=== PATIENT | male | born 1950 | race Caucasian/White ===

== ENCOUNTER 2020-11-22 20:57 | Emergency (ER) | payer SELFPAY ==
[~2020-11-22] VITALS: Ht 170.1 cm; Wt 81.6 kg
--- NOTE | 2020-11-22 21:06 | ED Neurological Problem ---
General Stated Complaint: STROKE SYMPTOMS Source: patient, family Exam Limitations: physical impairment History of Present Illness Date Seen by Provider: Nov 22, 2020 Time Seen by Provider: 21:02 Initial Comments 70-year-old male brought in by his daughter. Patient only speaks and understands Mongolian, has a history of a stroke approximate 4 years ago which he lost the ability to communicate well. He has some mild residual weakness on the right. His daughter brought him in today because after eating supper this evening he was complaining of his head hurting, and what she thought was maybe strokelike symptoms. When he registered in with his right hand he had tremors. Upon arrival these tremors seem very consistent with chills however he is no reports of fever. No reports of cough, nausea vomiting, diarrhea. Patient himself does not complain of any pain outside a what daughter described as a similar feeling when he had a stroke in his head. However due to his physical impairments from his prior stroke and language barrier history of present illness is very difficult to obtain Allergies and Home Medications Allergies Coded Allergies: No Known Drug Allergies (Unverified , 11/22/20) Patient Home Medication List Home Medication List Reviewed: Yes Review of Systems Review of Systems Constitutional: see HPI, chills Eyes: No Symptoms Reported Ears, Nose, Mouth, Throat: no symptoms reported Respiratory: No cough, No short of breath Cardiovascular: No chest pain; palpitations Gastrointestinal: no symptoms reported; No abdominal pain, No diarrhea, No vomiting Genitourinary: no symptoms reported Musculoskeletal: no symptoms reported Skin: no symptoms reported Psychiatric/Neurological: See HPI Past Bujdgrk-Fzykxz-Wketxe Hx Past Med/Social Hx: Reviewed Nursing Past Med/Soc Hx Patient Social History Recent Foreign Travel: No Contact w/Someone Who Travel: No Physical Exam Vital Signs Vital Signs - First Documented 11/22/20 21:00 Temp 36.5 Pulse 112 Resp 18 B/P (MAP) 165/80 (108) Pulse Ox 96 O2 Delivery Room Air Capillary Refill : Height, Weight, BMI Height: '" Weight: lbs. oz. kg; BMI Method: General Appearance: other (tremors consistent with what appears to be chills) HEENT: PERRL/EOMI Neck: full range of motion, supple Respiratory: lungs clear, normal breath sounds Cardiovascular: normal peripheral pulses, tachycardia Gastrointestinal: non tender, soft Extremities: other (patient at baseline with some mild decreased weakness in the right hand) Neurologic/Psychiatric: alert, oriented x 3 Skin: normal color, warm/dry Focused Exam Lactate Level 11/22/20 21:15: Lactic Acid Level 2.72*H 11/22/20 23:29: Lactic Acid Level 2.34*H Lactic Acid Level Laboratory Tests Test 11/22/20 21:15 11/22/20 23:29 Lactic Acid Level 2.72 MMOL/L (0.50-2.00) *H 2.34 MMOL/L (0.50-2.00) *H Progress/Results/Core Measures Results/Orders Lab Results Laboratory Tests Test 11/22/20 21:15 11/22/20 22:19 11/22/20 23:29 Range/Units White Blood Count 20.8 H 4.3-11.0 10^3/uL Red Blood Count 5.02 4.35-5.85 10^6/uL Hemoglobin 14.9 13.3-17.7 G/DL Hematocrit 43 40-54 % Mean Corpuscular Volume 86 80-99 FL Mean Corpuscular Hemoglobin 30 25-34 PG Mean Corpuscular Hemoglobin Concent 35 32-36 G/DL Red Cell Distribution Width 12.4 10.0-14.5 % Platelet Count 148 130-400 10^3/uL Mean Platelet Volume 10.6 H 7.4-10.4 FL Immature Granulocyte % (Auto) 1 % Neutrophils (%) (Auto) 84 H 42-75 % Lymphocytes (%) (Auto) 12 12-44 % Monocytes (%) (Auto) 3 0-12 % Eosinophils (%) (Auto) 1 0-10 % Basophils (%) (Auto) 0 0-10 % Neutrophils # (Auto) 17.4 H 1.8-7.8 X 10^3 Lymphocytes # (Auto) 2.5 1.0-4.0 X 10^3 Monocytes # (Auto) 0.6 0.0-1.0 X 10^3 Eosinophils # (Auto) 0.1 0.0-0.3 10^3/uL Basophils # (Auto) 0.0 0.0-0.1 10^3/uL Immature Granulocyte # (Auto) 0.1 0.0-0.1 10^3/uL Neutrophils % (Manual) 87 % Lymphocytes % (Manual) 10 % Monocytes % (Manual) 3 % Toxic Granulation 4+ Sodium Level 132 L 135-145 MMOL/L Potassium Level 4.4 3.6-5.0 MMOL/L Chloride Level 96 L 98-107 MMOL/L Carbon Dioxide Level 24 21-32 MMOL/L Anion Gap 12 5-14 MMOL/L Blood Urea Nitrogen 17 7-18 MG/DL Creatinine 1.32 H 0.60-1.30 MG/DL Estimat Glomerular Filtration Rate 54 BUN/Creatinine Ratio 13 Glucose Level 259 H 70-105 MG/DL Lactic Acid Level 2.72 *H 2.34 *H 0.50-2.00 MMOL/L Calcium Level 9.5 8.5-10.1 MG/DL Corrected Calcium 8.5-10.1 MG/DL Total Bilirubin 0.7 0.1-1.0 MG/DL Aspartate Amino Transf (AST/SGOT) 19 5-34 U/L Alanine Aminotransferase (ALT/SGPT) 22 0-55 U/L Alkaline Phosphatase 51 40-136 U/L C-Reactive Protein 0.18 <0.50 MG/DL Total Protein 7.9 6.4-8.2 GM/DL Albumin 4.9 H 3.2-4.5 GM/DL Urine Color YELLOW Urine Clarity CLEAR Urine pH 6.0 5-9 Urine Specific [place] 1.020 1.016-1.022 Urine Protein NEGATIVE NEGATIVE Urine Glucose (UA) 3+ H NEGATIVE Urine Ketones NEGATIVE NEGATIVE Urine Nitrite NEGATIVE NEGATIVE Urine Bilirubin NEGATIVE NEGATIVE Urine Urobilinogen 0.2 < = 1.0 MG/DL Urine Leukocyte Esterase NEGATIVE NEGATIVE Urine RBC (Auto) NEGATIVE NEGATIVE Urine RBC NONE /HPF Urine WBC NONE /HPF Urine Squamous Epithelial Cells NONE /HPF Urine Crystals NONE /LPF Urine Bacteria NEGATIVE /HPF Urine Casts NONE /LPF Urine Mucus NEGATIVE /LPF Urine Culture Indicated NO My Orders Orders - ELLIOTT,PIOTR L DO Cbc With Automated Diff (11/22/20 21:06) Comprehensive Metabolic Panel (11/22/20 21:06) Ua Culture If Indicated (11/22/20 21:06) Blood Culture (11/22/20 21:06) Crp Fs (11/22/20 21:06) Lactic Acid Analyzer (11/22/20 21:06) Ct Head Wo-R/O Stroke (11/22/20 21:06) Chest 1 View Ap/Pa Only (11/22/20 21:06) Accucheck Stat ONCE (11/22/20 21:06) Ed Iv/Invasive Line Start (11/22/20 21:06) Acetaminophen Tablet (Tylenol Tablet) (11/22/20 21:11) Ns Iv 1000 Ml (Sodium Chloride 0.9%) (11/22/20 21:11) Procalcitonin (Pct) (11/22/20 21:14) Manual Differential (11/22/20 21:15) Cefepime Injection (Maxipime Injection) (11/22/20 21:45) Ct Abdomen/Pelvis W (11/22/20 22:34) Ekg Tracing (11/22/20 22:49) Iohexol Injection (Omnipaque 350 Mg/Ml 1 (11/22/20 23:30) Received Contrast (Hold Metformin- Contr (11/22/20 23:30) Ns (Ivpb) (Sodium Chloride 0.9% Ivpb Bag (11/22/20 23:30) Medications Given in ED Current Medications Medications Dose Ordered Sig/Yane Route Start Time Stop Time Status Last Admin Dose Admin Cefepime HCl 1000 mg/Sterile Water 10 ml @ 200 mls/hr ONCE ONCE IV 11/22/20 21:45 11/22/20 21:47 DC 11/22/20 22:12 200 MLS/HR Iohexol 100 ml ONCE ONCE IV 11/22/20 23:30 11/22/20 23:35 DC 11/22/20 23:35 100 ML Sodium Chloride 100 ml ONCE ONCE IV 11/22/20 23:30 11/22/20 23:35 DC 11/22/20 23:36 80 ML Vital Signs/I&O 11/22/20 21:00 Temp 36.5 Pulse 112 Resp 18 B/P (MAP) 165/80 (108) Pulse Ox 96 O2 Delivery Room Air Progress Progress Note : Time: 00:08 Progress Note Patient symptoms improved significantly with some Tylenol and IV fluid. Repeat lactic showed slight improvement so I will give him another 1 L bolus of lactated Ringer's. Patient has elevated white count however he has a negative head CT, negative chest x-ray negative abdominal CT, patient has no complaints o f pain, no altered mental status or headache at this time. No neck pain, no sore throat with no signs of infection upon exam or evaluation outside his leukocytosis. Patient was initially given cefepime IV empirically. After discussing with patient and family, I will start him on outpatient Keflex, he is to follow-up Wednesday for repeat of his labs and recheck of his symptoms with his primary care provider. If patient or family has any concerns they should return the ER for further evaluation. I encouraged he drinks plenty of fluids as he does look slightly dehydrated with elevated creatinine and slightly low sodium. At discharge patient was stable with no symptoms. Patient's [place] and has no symptoms consistent with COVID. Did attempt a swab him for influenza which he refused. Initial ECG Impression Date: Nov 22, 2020 Initial ECG Impression Time: 21:10 Initial ECG Rate: 115 Initial ECG Rhythm: S.Tach Initial ECG Intervals: Normal Initial ECG Impression: Normal Diagnostic Imaging Diagonstic Imaging: Xray, CT Comments [facility], [place] NAME: [facility] REC#: [id number] PT STATUS: REG ER : 1950 PHYSICIAN: PIOTR ELLIOTT DO ADMIT DATE: 11/22/20/ER FS Signed Date of Exam:11/22/20 CT HEAD WO-R/O STROKE PROCEDURE: CT head w/o r/o stroke. TECHNIQUE: Multiple contiguous axial images were obtained through the brain without the use of intravenous contrast. Auto Exposure Controls were utilized during the CT exam to meet ALARA standards for radiation dose reduction. INDICATION: Numbness. History of previous stroke. COMPARISON: No study for comparison. FINDINGS: Noncontrasted images show no evidence of intracranial hemorrhage. There is no edema or mass effect. There is a large area of encephalomalacia along the left middle cerebral distribution along the parietal occipital area. No evidence of acute ischemic infarct. Basal cisterns are clear. Pituitary is not enlarged. Mild atherosclerotic disease noted. IMPRESSION: Large area of encephalomalacia in the left middle cerebral distribution with no acute abnormality. Dictated by: Dictated on workstation # [id number] Dict: 11/22/204 Trans: 11/22/202153 [facility] [id number] Interpreted by: DEANNE HODGES MD Electronically signed by: DEANNE HODGES MD 11/22/202153 [facility] [place] NAME: [facility] REC#: [id number] PT STATUS: REG ER : 1950 PHYSICIAN: PIOTR ELLIOTT DO ADMIT DATE: 11/22/20/ER FS Signed Date of Exam:11/22/20 CHEST 1 VIEW AP/PA ONLY INDICATION: Tremors and chills. EXAMINATION: Portable chest was obtained. FINDINGS: The lungs are well-aerated and clear. Heart is not enlarged. No pneumothorax or pleural effusion. IMPRESSION: Negative portable chest. Dictated by: Dictated on workstation # [id number] Dict: 11/22/202135 Trans: 11/22/202146 [facility] [id number] Interpreted by: DEANNE HODGES MD Electronically signed by: DEANNE HODGES MD 11/22/202146 Reviewed: Reviewed by Me Diagonstic Imaging: CT Plain Films/CT/US/NM/MRI: abdomen Comments Bladder wall thickening, otherwise no acute findings. Reviewed: Reviewed [place] Hawk Study, Reviewed by Me Departure Impression Primary Impression: Neutrophilic leukocytosis Additional Impression: Chills (without fever) Disposition: 01 HOME, SELF-CARE Condition: Stable Departure-Patient Inst. Add. Discharge Instructions: Please follow-up with your primary care provider on 11/25/20 for a recheck of today symptoms and a repeat of your labs. Return to the ER with any concerns for reevaluation Drink plenty of fluids Tylenol ibuprofen as needed for fever or chills Scripts Cephalexin (Cephalexin) 500 Mg Tablet 500 MG PO QID, #20 TAB 0 Refills Prov: PIOTR ELLIOTT DO 11/23/20 PIOTR ELLIOTT DO Nov 22, 2020 21:06
[2020-11-22] MEDS ORDERED: ACETAMINOPHEN 500 MG TAB (TYLENOL) PO STA (21:11)
[2020-11-22] MEDS ORDERED: NS IV 1000 ML 1,000 ML IV STA (21:11)
[2020-11-22 21:25] LABS: BASOPHILS % (AUTO) 0 % (0-10); EOSINOPHILS # (AUTO) 0.1 10^3/uL (0.0-0.3); EOSINOPHILS % (AUTO) 1 % (0-10); HEMATOCRIT 43 % (40-54); HEMOGLOBIN 14.9 G/DL (13.3-17.7); LYMPHOCYTES # (AUTO) 2.5 X 10^3 (1.0-4.0); LYMPHOCYTES % (AUTO) 12 % (12-44); MEAN CORPUSCULAR HEMOGLOBIN 30 PG (25-34); MEAN CORPUSCULAR HGB CONC 35 G/DL (32-36); MEAN CORPUSCULAR VOLUME 86 FL (80-99); MEAN PLATELET VOLUME 10.6 FL (7.4-10.4); MONOCYTES # (AUTO) 0.6 X 10^3 (0.0-1.0); MONOCYTES % (AUTO) 3 % (0-12); NEUTROPHILS # (AUTO) 17.4 X 10^3 (1.8-7.8); NEUTROPHILS % (AUTO) 84 % (42-75); PLATELET COUNT 148 10^3/uL (130-400); WHITE BLOOD COUNT 20.8 10^3/uL (4.3-11.0)
[2020-11-22 21:37] LABS: ALANINE AMINOTRANSFERASE 22 U/L (0-55); ALKALINE PHOSPHATASE 51 U/L (40-136); BILIRUBIN,TOTAL 0.7 MG/DL (0.1-1.0); BUN/CREATININE RATIO 13; CALCIUM 9.5 MG/DL (8.5-10.1); CARBON DIOXIDE 24 MMOL/L (21-32); CHLORIDE 96 MMOL/L (98-107); CREATININE SERUM 1.32 MG/DL (0.60-1.30); GFR ESTIMATED 54; GLUCOSE 259 MG/DL (70-105); POTASSIUM 4.4 MMOL/L (3.6-5.0); SODIUM 132 MMOL/L (135-145)
[2020-11-22 21:38] LABS: ALBUMIN 4.9 GM/DL (3.2-4.5); TOTAL PROTEIN 7.9 GM/DL (6.4-8.2)
--- NOTE | 2020-11-22 21:40 | Diagnostic Imaging Report ---
INDICATION: Tremors and chills. EXAMINATION: Portable chest was obtained. FINDINGS: The lungs are well-aerated and clear. Heart is not enlarged. No pneumothorax or pleural effusion. IMPRESSION: Negative portable chest. Dictated by: Dictated on workstation # [id number]
[2020-11-22] MEDS ORDERED: CEFEPIME INJECTION 1,000 MG in WATER (STERILE) FOR INJECTION 10 ML IV ONE (21:45)
--- NOTE | 2020-11-22 21:49 | Diagnostic Imaging Report ---
PROCEDURE: CT head w/o r/o stroke. TECHNIQUE: Multiple contiguous axial images were obtained through the brain without the use of intravenous contrast. Auto Exposure Controls were utilized during the CT exam to meet ALARA standards for radiation dose reduction. INDICATION: Numbness. History of previous stroke. COMPARISON: No study for comparison. FINDINGS: Noncontrasted images show no evidence of intracranial hemorrhage. There is no edema or mass effect. There is a large area of encephalomalacia along the left middle cerebral distribution along the parietal occipital area. No evidence of acute ischemic infarct. Basal cisterns are clear. Pituitary is not enlarged. Mild atherosclerotic disease noted. IMPRESSION: Large area of encephalomalacia in the left middle cerebral distribution with no acute abnormality. Dictated by: Dictated on workstation # [id number]
[2020-11-22 21:52] LABS: LYMPHOCYTES % (MANUAL) 10 %; MONOCYTES % (MANUAL) 3 %; NEUTROPHILS % (MANUAL) 87 %
[2020-11-22 21:53] LABS: TOXIC GRANULATION/VACUOLAZATIO 4+
--- NOTE | 2020-11-22 22:24 | NUR ---
Patient refused flu swab.
[2020-11-22 22:27] LABS: BACTERIA,URINE NEGATIVE /HPF; BILIRUBIN,URINE NEGATIVE (NEGATIVE); CLARITY,URINE CLEAR; COLOR,URINE YELLOW; GLUCOSE, URINE (UA) 3+ (NEGATIVE); KETONES,URINE NEGATIVE (NEGATIVE); LEUKOCYTE ESTERASE ,URINE NEGATIVE (NEGATIVE); NITRITE,URINE NEGATIVE (NEGATIVE); PROTEIN,URINE NEGATIVE (NEGATIVE)
[2020-11-22] MEDS ORDERED: NS 100 ML (IVPB) BAG IV ONE (23:30)
[2020-11-22] MEDS ORDERED: HOLD METFORMIN - RECEIVED CONTRAST 20 ML VIAL IV SCH (23:30)
[2020-11-22] MEDS ORDERED: IOHEXOL 350 MG/ML 100 ML (OMNIPAQUE 350) VIAL IV ONE (23:30)
[2020-11-23] MEDS ORDERED: LACTATED RINGERS 1,000 ML IV STA (00:08)
[2020-11-23] MEDS ORDERED: CEPH500T PO (00:13)
[2020-11-23 00:48] VITALS: BP 158/73
--- NOTE | 2020-11-23 06:19 | Diagnostic Imaging Report ---
PROCEDURE: CT abdomen and pelvis with contrast. TECHNIQUE: Multiple contiguous axial images were obtained through the abdomen and pelvis after administration of intravenous contrast. Auto Exposure Controls were utilized during the CT exam to meet ALARA standards for radiation dose reduction. All CT scans use one or more of the following dose optimizing techniques: automated exposure control, MA and/or KvP adjustment based on patient size and exam type or iterative reconstruction. INDICATION: Elevated white blood cell count as well as lactic acid. No prior studies are available for comparison. The lung bases are clear. No discrete liver mass is detected. Gallbladder is unremarkable. There is no biliary duct dilatation. Pancreas and spleen are unremarkable. No adrenal mass is detected. Kidneys are unremarkable. Aorta and iliac vessels are heavily calcified but nonaneurysmal. Small and large bowel loops are normal in caliber. There is no obstruction. No free fluid or fluid collection is identified. Bladder demonstrates some mild wall thickening. Prostate is enlarged. There are bilateral fat-containing inguinal hernias. IMPRESSION: 1. Mild bladder wall thickening as well as prostatomegaly. Findings could be owing to bladder outlet obstruction. 2. Bilateral fat-containing inguinal hernias. 3. No other significant abnormality is detected. Dictated by: Dictated on workstation # [id number]
== END 2020-11-23 00:48 | disposition home or self-care (01) ==
LOC: ER FS 21:00
DX: D72.828 Other elevated white blood cell count (principal); R68.83 Chills (without fever)
CPT/HCPCS: 36415; 70450; 71045; 74177; 80053; 81000; 83605; 84145; 85007; 85027; 86141; 87040; 93005

== ENCOUNTER 2022-03-20 23:45 | Emergency (ER) | payer SELFPAY ==
[~2022-03-20] VITALS: Ht 172.7 cm; Wt 80.0 kg
[~2022-03-20 23:45] MED LIST: CEPH500T PO
[2022-03-21 00:09] LABS: BASOPHILS % (AUTO) 0 % (0-10); EOSINOPHILS # (AUTO) 0.2 10^3/uL (0.0-0.3); EOSINOPHILS % (AUTO) 2 % (0-10); HEMATOCRIT 39 % (40-54); HEMOGLOBIN 14.3 g/dL (13.3-17.7); LYMPHOCYTES # (AUTO) 4.4 10^3/uL (1.0-4.0); LYMPHOCYTES % (AUTO) 39 % (12-44); MEAN CORPUSCULAR HEMOGLOBIN 30 pg (25-34); MEAN CORPUSCULAR HGB CONC 37 g/dL (32-36); MEAN CORPUSCULAR VOLUME 81 fL (80-99); MEAN PLATELET VOLUME 10.2 fL (9.0-12.2); MONOCYTES # (AUTO) 0.7 10^3/uL (0.0-1.0); MONOCYTES % (AUTO) 7 % (0-12); NEUTROPHILS # (AUTO) 5.8 10^3/uL (1.8-7.8); NEUTROPHILS % (AUTO) 51 % (42-75); PLATELET COUNT 155 10^3/uL (130-400); WHITE BLOOD COUNT 11.2 10^3/uL (4.3-11.0)
[2022-03-21 00:30] LABS: ALANINE AMINOTRANSFERASE 22 U/L (0-55); ALBUMIN 4.6 GM/DL (3.2-4.5); ALKALINE PHOSPHATASE 56 U/L (40-136); BILIRUBIN,TOTAL 0.6 MG/DL (0.1-1.0); BUN/CREATININE RATIO 15; CARBON DIOXIDE 21 MMOL/L (21-32); CHLORIDE 100 MMOL/L (98-107); CREATININE SERUM 1.54 MG/DL (0.60-1.30); GFR ESTIMATED 48; GLUCOSE 196 MG/DL (70-105); POTASSIUM 4.4 MMOL/L (3.6-5.0); SODIUM 134 MMOL/L (135-145)
--- NOTE | 2022-03-21 01:14 | ED Respiratory ---
General Chief Complaint: Respiratory Problems Stated Complaint: SOB Nursing Triage Note: Pt arrival to ER via wheelchair with complaint of SOA since yesterday morning. Family states that patient is non verbal after stroke. Family states that patient has had a cough here and there but nothing consistant. Pt denies chest pain. Pt does shake head when asking if there is pain when taking deep breath. Pt has no hx of copd, or smoking. Family states that patient took some dayquil today and felt much better. States that patient denied wanting to go to PCP today. States that tonight when patient went to lay down for bed, SOA worsened and patient wanted to go to checked out. PT has hx of HTN per family. Source: patient, family Exam Limitations: other (Aphasia from prior stroke) History of Present Illness Date Seen by Provider: Mar 20, 2022 Time Seen by Provider: 23:58 Initial Comments This 71-year-old gentleman presents to the emergency room accompanied by his family with expressions of shortness of breath. Patient has notable expressive aphasia from a prior stroke, but he was able to communicate to his family that he felt short of breath. He denies any new cough, fever, chest pain, nausea, etc. He is notably hypertensive on arrival. That hypertension improved rapidly without treatment. Family states he does get very anxious at times since the stroke. Anytime he has a medical issue that causes him distress, he gets quite anxious. Allergies and Home Medications Allergies Coded Allergies: No Known Drug Allergies (Unverified , 11/22/20) Patient Home Medication List Home Medication List Reviewed: Yes Azithromycin (Azithromycin) 250 Mg Tablet, 250 MG PO UD Prescribed by: ANTONINO CORTEZ on 03/23/22 1119 Cephalexin (Cephalexin) 500 Mg Tablet, 500 MG PO QID Prescribed by: PIOTR ELLIOTT on 11/23/20 0013 Review of Systems Review of Systems Constitutional: no symptoms reported EENTM: no symptoms reported Respiratory: see HPI Cardiovascular: no symptoms reported Gastrointestinal: no symptoms reported Musculoskeletal: other (Contractures of the right upper extremity) Skin: no symptoms reported Psychiatric/Neurological: See HPI Hematologic/Lymphatic: No Symptoms Reported Immunological/Allergic: no symptoms reported Past Cqgzyxh-Gteday-Qdvyne Hx Patient Social History Tobacco Use?: No Use of E-Cig and/or Vaping dev: No Substance use?: No Alcohol Use?: No Pt feels they are or have been: No Immunizations Up To Date Second COVID19 Vaccination David: 10/12 COVID19 Vaccine Electric Cell Tender: Jasen Past Medical History Surgeries: No Respiratory: No Cardiac: Yes Hypertension Neurological: Yes (Right Sided Residual, aphasia, spasticity of right upper extremity) Stroke Genitourinary: No Gastrointestinal: No Musculoskeletal: No Endocrine: Yes Diabetes, Non-Insulin dep HEENT: No Cancer: No Psychosocial: No Integumentary: No Physical Exam Vital Signs - First Documented Capillary Refill : Less Than 3 Seconds Height: '" Weight: lbs. oz. 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, no motor/sensory deficits, alert, normal mood/affect, oriented x 3 Skin: normal color, warm/dry Progress/Results/Core Measures Suspected Sepsis SIRS Temperature: Pulse: 97 Respiratory Rate: 20 Laboratory Tests 03/21/22 00:02: White Blood Count 11.2H Blood Pressure 215 /95 Mean: 135 Laboratory Tests 03/21/22 00:02: Creatinine 1.54H, Platelet Count 155, Total Bilirubin 0.6 Results/Orders Lab Results Laboratory Tests Test 03/21/22 00:02 Range/Units White Blood Count 11.2 H 4.3-11.0 10^3/uL Red Blood Count 4.85 4.30-5.52 10^6/uL Hemoglobin 14.3 13.3-17.7 g/dL Hematocrit 39 L 40-54 % Mean Corpuscular Volume 81 80-99 fL Mean Corpuscular Hemoglobin 30 25-34 pg Mean Corpuscular Hemoglobin Concent 37 H 32-36 g/dL Red Cell Distribution Width 12.9 10.0-14.5 % Platelet Count 155 130-400 10^3/uL Mean Platelet Volume 10.2 9.0-12.2 fL Immature Granulocyte % (Auto) 1 % Neutrophils (%) (Auto) 51 42-75 % Lymphocytes (%) (Auto) 39 12-44 % Monocytes (%) (Auto) 7 0-12 % Eosinophils (%) (Auto) 2 0-10 % Basophils (%) (Auto) 0 0-10 % Neutrophils # (Auto) 5.8 1.8-7.8 10^3/uL Lymphocytes # (Auto) 4.4 H 1.0-4.0 10^3/uL Monocytes # (Auto) 0.7 0.0-1.0 10^3/uL Eosinophils # (Auto) 0.2 0.0-0.3 10^3/uL Basophils # (Auto) 0.0 0.0-0.1 10^3/uL Immature Granulocyte # (Auto) 0.1 0.0-0.1 10^3/uL Sodium Level 134 L 135-145 MMOL/L Potassium Level 4.4 3.6-5.0 MMOL/L Chloride Level 100 98-107 MMOL/L Carbon Dioxide Level 21 21-32 MMOL/L Anion Gap 13 5-14 MMOL/L Blood Urea Nitrogen 23 H 7-18 MG/DL Creatinine 1.54 H 0.60-1.30 MG/DL Estimat Glomerular Filtration Rate 48 BUN/Creatinine Ratio 15 Glucose Level 196 H 70-105 MG/DL Calcium Level 10.0 8.5-10.1 MG/DL Corrected Calcium 8.5-10.1 MG/DL Total Bilirubin 0.6 0.1-1.0 MG/DL Aspartate Amino Transf (AST/SGOT) 16 5-34 U/L Alanine Aminotransferase (ALT/SGPT) 22 0-55 U/L Alkaline Phosphatase 56 40-136 U/L Troponin I < 0.30 <0.30 NG/ML C-Reactive Protein < 0.30 <0.50 MG/DL Pro-B-Type Natriuretic Peptide 79.8 H <75.0 PG/ML Total Protein 8.0 6.4-8.2 GM/DL Albumin 4.6 H 3.2-4.5 GM/DL Influenza Type A (RT-PCR) Not Detected Not Detecte Influenza Type A Antigen NEGATIVE NEGATIVE Influenza Type B Antigen NEGATIVE NEGATIVE Influenza Type B (RT-PCR) Not Detected Not Detecte SARS-CoV-2 RNA (RT-PCR) Not Detected Not Detecte My Orders Orders - ALEKSANDER TADEO MD Ed Iv/Invasive Line Start (03/20/22 23:58) Ekg Tracing (03/20/22 23:58) Monitor-Rhythm Ecg Trace Only (03/20/22 23:58) Cbc With Automated Diff (03/20/22 23:58) Comprehensive Metabolic Panel (03/20/22 23:58) Probnp Fs (03/20/22 23:58) Troponin I Fs (03/20/22 23:58) Covid 19 Inhouse Test (03/20/22 23:58) Influenza A And B By Pcr (03/20/22 23:58) Chest Pa/Lat (2 View) (03/21/22 00:03) Crp Fs (03/21/22 00:02) Influenza A & B Antigens (03/21/22 00:42) Vital Signs/I&O 03/21/22 03/21/22 03/21/22 00:05 00:05 01:18 Temp 36.7 Pulse 97 86 Resp 20 20 B/P (MAP) 215/95 (135) 148/77 Pulse Ox 98 96 O2 Delivery Room Air Room Air Room Air Capillary Refill : Less Than 3 Seconds Blood Pressure Mean: 135 Progress Note : Progress Note Patient was seen and examined. Work-up revealed no significant abnormalities. Patient was feeling better without any interventions. Blood pressure improved as he relaxed. Family was later called with the COVID-19 negative result. ECG Initial ECG Impression Date: Mar 21, 2022 Initial ECG Impression Time: 00:10 Initial ECG Rate: 99 Initial ECG Rhythm: S.Tach Comment Mild sinus tachycardia with no diagnostic ST elevation or depression. No abnormal intervals or axis deviation. Diagnostic Imaging Diagonstic Imaging: Xray Plain Films/CT/US/NM/MRI: chest Comments 2 view chest x-ray viewed by me and report not yet available. No acute abnormalities were appreciated in comparison with prior. Departure Impression Primary Impression: Dyspnea Qualified Codes: R06.00 - Dyspnea, unspecified Additional Impression: Episode of hypertension Disposition: HOME, SELF-CARE Condition: Improved Departure-Patient Inst. Decision time for Depature: 01:12 Referrals: ANNA SHRESTHA MD (PCP/Family) Primary Care Physician Patient Instructions: Shortness of Breath, Adult ED Add. Discharge Instructions: Follow-up with your primary care provider soon as possible. Discuss possibly having a medication available to take for anxiety attacks as the sensation of shortness of breath may be due to anxiety. Continue your medications as previously prescribed. Return to the ER if you have worsening symptoms. Your COVID-19 test is still pending and we could call you with the result. All discharge instructions reviewed with patient and/or family. Voiced understanding. Copy Copies To 1: ANNA SHRESTHA MD, JOSHUA T MD Mar 21, 2022 01:14
[2022-03-21 01:18] VITALS: BP 148/77
--- NOTE | 2022-03-21 07:20 | Diagnostic Imaging Report ---
INDICATION: Shortness of air COMPARISON: 11/22/2020 TECHNIQUE: 3 radiographs of the chest dated 03/21/2022 FINDINGS: Surgical clips are identified overlying the left neck. The cardiac silhouette is within normal limits in size. No significant pulmonary vascular congestion. Mildly decreased lung volumes without focal pulmonary opacity. No pleural effusion. No pneumothorax. Scattered osseous degenerative changes without acute osseous abnormality. IMPRESSION: Decreased lung volumes without superimposed acute cardiopulmonary abnormality. Dictated by: Dictated on workstation # [id number]
== END 2022-03-21 01:18 | disposition home or self-care (01) ==
LOC: EDUNIT# 23:45 → ER FS 23:47
DX: R06.00 Dyspnea, unspecified (principal); I10 Essential (primary) hypertension; Z20.822 Contact with and (suspected) exposure to COVID-19
CPT/HCPCS: 36415; 71046; 80053; 83880; 84484; 85025; 86141; 87636; 87804; 93005; 93041

== ENCOUNTER 2022-03-23 05:58 | Emergency (ER) | payer SELFPAY ==
[~2022-03-23] VITALS: Ht 172.7 cm; Wt 78.9 kg
[2022-03-23 06:28] LABS: ABG BASE EXCESS -2.5 MMOL/L (-2.5-2.5); ABG OXYGEN SATURATION 95 % (94-100); ABG PCO2 39 MMHG (35-45); ABG PH 7.37 (7.37-7.43); ABG PO2 77 MMHG (79-93); ABG TCO2 23.1 MMOL/L (21.0-31.0)
[2022-03-23 06:30] LABS: ALLENS TEST YES-POS; INSPIRED O2 ROOM AIR; PATIENT TEMP 37; VENTILATOR NO
--- NOTE | 2022-03-23 06:33 | ED Respiratory ---
General Chief Complaint: Respiratory Problems Stated Complaint: SOB Nursing Triage Note: Pt alert to ER with complaint of SOA. Pt is alert and in no obvious distress. Pt RR is 20 and o2 sat is 97%. Pt was seen at [place] [facility] two days ago for same thing with complete work up being unremarkable. Family of patient states that they came here this AM from [place] because the ER in [place] didn't do anything. Pt denies chest pain or other symptoms. Source: patient, family Exam Limitations: language barrier (Family interprets) History of Present Illness Date Seen by Provider: March 23, 2022 Time Seen by Provider: 06:04 Initial Comments Patient to the ER by private conveyance from home with chief complaint that for the past couple days has been complaining of being very short of breath especially after he lays down to sleep at night. States during the day when he lays down for a nap he does not become short of breath in his chair. 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 He is not having any chest pain nausea swelling in his hands or feet or weight gain. He does not take any antihistamines but does endorse some nasal congestion and an occasional dry cough. No fevers or chills. He was seen 2 days ago at the [place] [facility] and had a work-up including negative COVID and influenza, negative chest x-ray and negative labs. He was noted at that time to have elevated blood pressure and appeared very anxious but after a short while he relaxed and his blood pressure came back down to normal. He has not had his blood pressure medicines this morning. Nursing reports his blood pressure initially was 198/100. Primary care by Dr. MALLORY. Allergies and Home Medications Allergies Coded Allergies: No Known Drug Allergies (Unverified , 11/22/20) Patient Home Medication List Home Medication List Reviewed: Yes Cephalexin (Cephalexin) 500 Mg Tablet, 500 MG PO QID Prescribed by: PIOTR ELLIOTT on 11/23/20 0013 Review of Systems Review of Systems Constitutional: No chills, No fever, No malaise EENTM: No ear discharge, No ear pain, No eye pain Respiratory: cough; No dyspnea on exertion, No hemoptysis, No phlegm; short of breath; No wheezing Cardiovascular: No chest pain, No edema, No palpitations Gastrointestinal: No abdominal pain, No nausea, No vomiting Genitourinary: No discharge, No dysuria Musculoskeletal: No back pain, No joint pain All Other Systems Reviewed Negative Unless Noted: Yes Past Cqgjjji-Fumoin-Hopmbj Hx Patient Social History Tobacco Use?: No Use of E-Cig and/or Vaping dev: No Substance use?: No Alcohol Use?: No Pt feels they are or have been: No Immunizations Up To Date Influenza Vaccine Up-to-Date: Yes; Up-to-Date First/Initial COVID19 Vaccinat: 10/12 Second COVID19 Vaccination David: 10/12 Third COVID19 Vaccination Date: 10/12 Past Medical History Surgeries: No Respiratory: No Cardiac: Yes Hypertension Neurological: Yes (Right Sided Residual, aphasia, spasticity of right upper extremity) Stroke Genitourinary: No Gastrointestinal: No Musculoskeletal: No Endocrine: Yes Diabetes, Non-Insulin dep HEENT: No Cancer: No Psychosocial: No Integumentary: No Physical Exam Vital Signs - First Documented 03/23/22 06:14 Temp 37.0 Pulse 96 Resp 20 B/P (MAP) 196/108 (137) Pulse Ox 97 O2 Delivery Room Air Capillary Refill : Less Than 3 Seconds Height: '" Weight: lbs. oz. kg; 26.00 BMI Method: General Appearance: WD/WN, no apparent distress Eyes: Bilateral Eye Normal Inspection, Bilateral Eye PERRL, Bilateral Eye EOMI HEENT: PERRL/EOMI, normal ENT inspection; No TMs normal (Bilateral TMs with mu coid effusion but no injection, loss of landmarks or erythema); pharynx normal Neck: full range of motion, supple, normal inspection Respiratory: lungs clear, normal breath sounds, no respiratory distress, no acc essory muscle use Cardiovascular: normal peripheral pulses, regular rate, rhythm Gastrointestinal: normal bowel sounds, non tender, soft Extremities: normal inspection, no pedal edema, normal capillary refill Neurologic/Psychiatric: alert, normal mood/affect, oriented x 3 Skin: normal color, warm/dry Progress/Results/Core Measures Suspected Sepsis SIRS Temperature: Pulse: 96 Respiratory Rate: 20 Laboratory Tests 03/23/22 06:10: White Blood Count 11.9H Blood Pressure 196 /108 Mean: 137 Laboratory Tests 03/23/22 06:10: Creatinine 1.33H, Platelet Count 178, Total Bilirubin 0.9 Results/Orders Lab Results Laboratory Tests Test 03/23/22 06:10 03/23/22 06:22 Range/Units White Blood Count 11.9 H 4.3-11.0 10^3/uL Red Blood Count 4.86 4.30-5.52 10^6/uL Hemoglobin 14.3 13.3-17.7 g/dL Hematocrit 40 40-54 % Mean Corpuscular Volume 82 80-99 fL Mean Corpuscular Hemoglobin 29 25-34 pg Mean Corpuscular Hemoglobin Concent 36 32-36 g/dL Red Cell Distribution Width 12.6 10.0-14.5 % Platelet Count 178 130-400 10^3/uL Mean Platelet Volume 10.8 9.0-12.2 fL Immature Granulocyte % (Auto) 1 % Neutrophils (%) (Auto) 66 42-75 % Lymphocytes (%) (Auto) 26 12-44 % Monocytes (%) (Auto) 7 0-12 % Eosinophils (%) (Auto) 1 0-10 % Basophils (%) (Auto) 0 0-10 % Neutrophils # (Auto) 7.8 1.8-7.8 10^3/uL Lymphocytes # (Auto) 3.1 1.0-4.0 10^3/uL Monocytes # (Auto) 0.8 0.0-1.0 10^3/uL Eosinophils # (Auto) 0.1 0.0-0.3 10^3/uL Basophils # (Auto) 0.0 0.0-0.1 10^3/uL Immature Granulocyte # (Auto) 0.1 0.0-0.1 10^3/uL Sodium Level 134 L 135-145 MMOL/L Potassium Level 4.2 3.6-5.0 MMOL/L Chloride Level 101 98-107 MMOL/L Carbon Dioxide Level 20 L 21-32 MMOL/L Anion Gap 13 5-14 MMOL/L Blood Urea Nitrogen 17 7-18 MG/DL Creatinine 1.33 H 0.60-1.30 MG/DL Estimat Glomerular Filtration Rate 58 BUN/Creatinine Ratio 13 Glucose Level 167 H 70-105 MG/DL Calcium Level 9.5 8.5-10.1 MG/DL Corrected Calcium 8.5-10.1 MG/DL Total Bilirubin 0.9 0.1-1.0 MG/DL Aspartate Amino Transf (AST/SGOT) 17 5-34 U/L Alanine Aminotransferase (ALT/SGPT) 25 0-55 U/L Alkaline Phosphatase 53 40-136 U/L Troponin I < 0.028 <0.028 NG/ML C-Reactive Protein High Sensitivity 0.15 0.00-0.50 MG/DL B-Type Natriuretic Peptide 18.2 <100.0 PG/ML Total Protein 7.8 6.4-8.2 GM/DL Albumin 4.7 H 3.2-4.5 GM/DL Blood Gas Puncture Site RIGHT RADIAL Blood Gas Patient Temperature 37 Arterial Blood pH 7.37 7.37-7.43 Arterial Blood Partial Pressure CO2 39 35-45 MMHG Arterial Blood Partial Pressure O2 77 L 79-93 MMHG Arterial Blood HCO3 22 L 23-27 MMOL/L Arterial Blood Total CO2 23.1 21.0-31.0 MMOL/L Arterial Blood Oxygen Saturation 95 94-100 % Arterial Blood Base Excess -2.5 -2.5-2.5 MMOL/L Cody Test YES-POS Blood Gas Ventilator Setting NO Blood Gas Inspired Oxygen ROOM AIR My Orders Orders - ANTONINO CORTEZ Arterial Blood Gas (03/23/22 06:23) Chest Pa/Lat (2 View) (03/23/22 06:24) Cbc With Automated Diff (03/23/22 06:24) Comprehensive Metabolic Panel (03/23/22 06:24) Hs C Reactive Protein (03/23/22 06:24) Continuous Ekg Monitoring (03/23/22 06:24) Ekg Tracing (03/23/22 06:24) Troponin I [place] (03/23/22 06:24) Bnp [place] (03/23/22 06:24) Covid-19 External Lab Results (03/23/22 06:24) Ct Angio Chest W (03/23/22 08:01) Ed Iv/Invasive Line Start (03/23/22 08:01) Ns Iv 1000 Ml (Sodium Chloride 0.9%) (03/23/22 08:15) Iohexol Injection (Omnipaque 350 Mg/Ml 1 (03/23/22 08:30) Received Contrast (Hold Metformin- Contr (03/23/22 08:30) Sodium Chloride Flush (Catheter Flush Sy (03/23/22 08:30) Ns (Ivpb) (Sodium Chloride 0.9% Ivpb Bag (03/23/22 08:30) Medications Given in ED Current Medications Medications Dose Ordered Sig/Yane Route Start Time Stop Time Status Last Admin Dose Admin Iohexol 100 ml ONCE ONCE IV 03/23/22 08:30 03/23/22 08:31 DC 03/23/22 08:41 70 ML Sodium Chloride 10 ml NEEDED PRN IV 03/23/22 08:30 03/23/22 08:41 10 ML Sodium Chloride 100 ml ONCE ONCE IV 03/23/22 08:30 03/23/22 08:31 DC 03/23/22 08:41 80 ML Vital Signs/I&O 03/23/22 03/23/22 06:14 06:14 Temp 37.0 Pulse 96 Resp 20 B/P (MAP) 196/108 (137) Pulse Ox 97 O2 Delivery Room Air Room Air Capillary Refill : Less Than 3 Seconds Blood Pressure Mean: 137 Progress Note #1: Time: 06:36 Progress Note Patient had a clean work-up couple days ago and his blood pressure went down without intervention. He was chalked up to perhaps anxiety. Today he does endorse some congestion in his nose and certainly allergies could be making it hard for him to sleep at night causing his sensation of dyspnea. Were going to broaden our look with troponin, EKG, BNP and an ABG and repeat a chest x-ray with basic labs. 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 Progress Note #2: Time: 10:58 Progress Note Patient is resting comfortably, got up to use the bathroom several times. He does not have any evidence of acute disease however he has some emphysematous changes on imaging. We will put him on a nasal steroid, Zyrtec once a day and some azithromycin with follow-up with Dr. MALLORY. ECG Initial ECG Impression Date: March 23, 2022 Initial ECG Impression Time: 06:33 Initial ECG Rate: 84 Initial ECG Rhythm: Normal Sinus Initial ECG Intervals: Normal Initial ECG Impression: Normal Initial ECG Comparisson: Unchanged Comment Normal sinus rhythm with a PVC but no clinically relevant ST changes Diagnostic Imaging Diagonstic Imaging: Xray Plain Films/CT/US/NM/MRI: chest Comments [facility] [place], [place] NAME: TUCKER BOWLES [employer] REC#: [id number] PT STATUS: REG ER : 1950 PHYSICIAN: ANTONINO CORTEZ MD ADMIT DATE: 03/23/22/ER Draft Date of Exam:03/23/22 CHEST PA/LAT (2 VIEW) CLINICAL INDICATIONS: Patient with shortness of air. EXAM: Chest x-ray PA and lateral views. COMPARISON: Chest x-ray dated 03/21/2022. FINDINGS: Lungs/pleura: Increased lung markings throughout both lungs again seen with no interval lung infiltrate. There is no pneumothorax. There is no pleural effusion. Mediastinum: Unremarkable. Pulmonary vasculature: Unremarkable. Heart: Unremarkable. Bones/extrathoracic soft tissue: There are hypertrophic spurs involving the thoracic spine. IMPRESSION: There is no radiographic evidence of acute cardiopulmonary process. Dictated on workstation # [id number] Dict: 03/23/2230 Trans: 03/23/22 0735 CV [id number] Interpreted by: MARIA TERESA GARCIA MD Electronically signed by: Reviewed: Reviewed by Me Diagonstic Imaging: CT Plain Films/CT/US/NM/MRI: chest Comments [facility] [place] [place] NAME: TUCKER BOWLES [employer] REC#: [id number] PT STATUS: REG ER : 1950 PHYSICIAN: ANTONINO CORTEZ MD ADMIT DATE: 03/23/22/ER Draft Date of Exam:03/23/22 CT ANGIO CHEST W Clinical Indication: Patient with shortness of air. Suspected pulmonary embolism. Exam: CT angiogram of the chest performed with 70 cc Omnipaque 350 IV contrast. Coronal and oblique MIP images of the vasculature were created to better evaluate anatomy. Auto Exposure Controls were utilized during the CT exam to meet ALARA standards for radiation dose reduction. Comparison: Chest x-ray dated 03/23/2022. CT scan of the abdomen and pelvis with contrast dated 12/03/2020. Findings: Emphysematous lung disease again seen. There is atelectasis involving both lung bases. There is stable amorphous consolidation involving the medial right lung base which may represent scarring. There is no pleural effusion or pneumothorax. There is no mediastinal, hilar, or axillary lymphadenopathy. Cardiac silhouette is unremarkable. The thoracic aorta shows no aneurysmal dilation or dissection. 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 There is no pulmonary embolism. Visualized upper abdominal structures show no significant abnormality. There are hypertrophic spurs involving the thoracic spine and visualized upper lumbar spine. IMPRESSION: 1: There is no evidence of pulmonary embolism. There is no thoracic aortic aneurysm or dissection. 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 3: There is mild atelectasis involving both lung bases. Stable small area of suspected scarring involving the medial right lung base. 4: Mild emphysematous lung disease. Dictated on workstation # [id number] Dict: 03/23/2241 Trans: 03/23/2251 CV [id number] Interpreted by: MARIA TERESA GARCIA MD Electronically signed by: Reviewed: Reviewed by Me Departure Impression Primary Impression: Dyspnea Qualified Codes: R06.02 - Shortness of breath Additional Impressions: Allergic rhinitis with postnasal drip Emphysema lung Qualified Codes: J43.9 - Emphysema, unspecified Disposition: 01 HOME, SELF-CARE Condition: Stable Departure-Patient Inst. Decision time for Depature: 10:59 Referrals: ANNA SHRESTHA MD (PCP/Family) Primary Care Physician Patient Instructions: Seasonal Allergies ED, Medicines for Chronic Obstructive Pulmonary Disease (COPD) Add. Discharge Instructions: You Do not have any evidence of a pneumonia however you may be having some irritation of the lungs at the microscopic level also some azithromycin will be helpful. You also have some congestion in your nose so some medications focused on helping this especially at bedtime will be helpful in clearing up your symptoms. I would like you to follow-up with your primary doctor in 1 to 2 weeks to discuss a sleep study and see if your medicines are helping. Azithromycin 2 tablets today followed by 1 tablet every day until it is gone. Bottle of Flonase/fluticasone and put 1 puff in each nostril every day to reduce inflammation. Afrin/oxymetazoline 1 puff each nostril at bedtime to reduce the swelling and mucus production that may be contributing to waking up short of breath. Zyrtec/cetirizine or Claritin/loratadine 10 mg daily for the next 1 to 2 weeks to reduce inflammation in your nose and upper airway. All discharge instructions reviewed with patient and/or family. Voiced understanding. Scripts Azithromycin (Azithromycin) 250 Mg Tablet 250 MG PO UD, #6 TAB 0 Refills TAKE 2 TABLETS ON DAY ONE THEN TAKE 1 TABLET DAILY FOR FOUR MORE DAYS Prov: ANTONINO CORTEZ 03/23/22 Copy Copies To 1: ANNA SHRESTHA MD, TITUS J March 23, 2022 06:33
[2022-03-23 06:35] LABS: BASOPHILS % (AUTO) 0 % (0-10); EOSINOPHILS # (AUTO) 0.1 10^3/uL (0.0-0.3); EOSINOPHILS % (AUTO) 1 % (0-10); HEMATOCRIT 40 % (40-54); HEMOGLOBIN 14.3 g/dL (13.3-17.7); LYMPHOCYTES # (AUTO) 3.1 10^3/uL (1.0-4.0); LYMPHOCYTES % (AUTO) 26 % (12-44); MEAN CORPUSCULAR HEMOGLOBIN 29 pg (25-34); MEAN CORPUSCULAR HGB CONC 36 g/dL (32-36); MEAN CORPUSCULAR VOLUME 82 fL (80-99); MEAN PLATELET VOLUME 10.8 fL (9.0-12.2); MONOCYTES # (AUTO) 0.8 10^3/uL (0.0-1.0); MONOCYTES % (AUTO) 7 % (0-12); NEUTROPHILS # (AUTO) 7.8 10^3/uL (1.8-7.8); NEUTROPHILS % (AUTO) 66 % (42-75); PLATELET COUNT 178 10^3/uL (130-400); WHITE BLOOD COUNT 11.9 10^3/uL (4.3-11.0)
[2022-03-23 06:48] LABS: ALBUMIN 4.7 GM/DL (3.2-4.5)
[2022-03-23 06:49] LABS: CHLORIDE 101 MMOL/L (98-107); POTASSIUM 4.2 MMOL/L (3.6-5.0); SODIUM 134 MMOL/L (135-145)
[2022-03-23 06:50] LABS: CALCIUM 9.5 MG/DL (8.5-10.1)
[2022-03-23 06:51] LABS: GLUCOSE 167 MG/DL (70-105); TOTAL PROTEIN 7.8 GM/DL (6.4-8.2)
[2022-03-23 06:52] LABS: CARBON DIOXIDE 20 MMOL/L (21-32)
[2022-03-23 06:53] LABS: BILIRUBIN,TOTAL 0.9 MG/DL (0.1-1.0)
[2022-03-23 06:54] LABS: ALKALINE PHOSPHATASE 53 U/L (40-136)
[2022-03-23 06:55] LABS: CREATININE SERUM 1.33 MG/DL (0.60-1.30); GFR ESTIMATED 58
[2022-03-23 06:56] LABS: BUN/CREATININE RATIO 13
[2022-03-23 06:58] LABS: ALANINE AMINOTRANSFERASE 25 U/L (0-55)
--- NOTE | 2022-03-23 07:35 | Diagnostic Imaging Report ---
CLINICAL INDICATIONS: Patient with shortness of air. EXAM: Chest x-ray PA and lateral views. COMPARISON: Chest x-ray dated 03/21/2022. FINDINGS: Lungs/pleura: Increased lung markings throughout both lungs again seen with no interval lung infiltrate. There is no pneumothorax. There is no pleural effusion. Mediastinum: Unremarkable. Pulmonary vasculature: Unremarkable. Heart: Unremarkable. Bones/extrathoracic soft tissue: There are hypertrophic spurs involving the thoracic spine. IMPRESSION: There is no radiographic evidence of acute cardiopulmonary process. Dictated by: Dictated on workstation # [id number]
[2022-03-23] MEDS ORDERED: NS IV 1000 ML 1,000 ML IV SCH (08:15)
[2022-03-23] MEDS ORDERED: CATHETER FLUSH 10 ML SYR IV PRN (08:30)
[2022-03-23] MEDS ORDERED: IOHEXOL 350 MG/ML 100 ML (OMNIPAQUE 350) VIAL IV ONE (08:30)
[2022-03-23] MEDS ORDERED: HOLD METFORMIN - RECEIVED CONTRAST 20 ML VIAL IV SCH (08:30)
[2022-03-23] MEDS ORDERED: NS 100 ML (IVPB) BAG IV ONE (08:30)
--- NOTE | 2022-03-23 08:52 | Diagnostic Imaging Report ---
Clinical Indication: Patient with shortness of air. Suspected pulmonary embolism. Exam: CT angiogram of the chest performed with 70 cc Omnipaque 350 IV contrast. Coronal and oblique MIP images of the vasculature were created to better evaluate anatomy. Auto Exposure Controls were utilized during the CT exam to meet ALARA standards for radiation dose reduction. Comparison: Chest x-ray dated 03/23/2022. CT scan of the abdomen and pelvis with contrast dated 12/03/2020. Findings: Emphysematous lung disease again seen. There is atelectasis involving both lung bases. There is stable amorphous consolidation involving the medial right lung base which may represent scarring. There is no pleural effusion or pneumothorax. There is no mediastinal, hilar, or axillary lymphadenopathy. Cardiac silhouette is unremarkable. The thoracic aorta shows no aneurysmal dilation or dissection. 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 There is no pulmonary embolism. Visualized upper abdominal structures show no significant abnormality. There are hypertrophic spurs involving the thoracic spine and visualized upper lumbar spine. IMPRESSION: 1: There is no evidence of pulmonary embolism. There is no thoracic aortic aneurysm or dissection. 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 3: There is mild atelectasis involving both lung bases. Stable small area of suspected scarring involving the medial right lung base. 4: Mild emphysematous lung disease. Dictated by: Dictated on workstation # [id number]
[2022-03-23] MEDS ORDERED: AZIT250T12 PO (11:19)
[2022-03-23 11:50] VITALS: BP 155/74
== END 2022-03-23 11:50 | disposition home or self-care (01) ==
LOC: EDUNIT# 05:58 → ER 06:00
DX: J43.9 Emphysema, unspecified (principal); J30.9 Allergic rhinitis, unspecified; Z20.822 Contact with and (suspected) exposure to COVID-19
CPT/HCPCS: 36415; 71046; 71275; 80053; 82805; 83880; 84484; 85025; 86141; 93005